=== PATIENT | male | born 1960 | race Two or more races ===

== ENCOUNTER 2018-09-10 16:01 | Emergency (ER) | payer BC, OTHER ==
[~2018-09-10] VITALS: Ht 172.7 cm; Wt 93.0 kg
[2018-09-10 16:25] VITALS: BP 132/81
[2018-09-10] MEDS ORDERED: LORazepam 0.5 MG TAB PO ONE (16:30)
[2018-09-10] MEDS ORDERED: KETOROLAC TROMETH 60MG/2ML VIAL IM ONE (17:30)
== END 2018-09-10 17:46 | disposition home or self-care (01) ==
LOC: ER 16:01
DX: S16.1XXA Strain of muscle, fascia and tendon at neck level, initial encounter (principal); S39.012A Strain of muscle, fascia and tendon of lower back, initial encounter; M25.511 Pain in right shoulder; V42.5XXA Car driver injured in collision with two- or three-wheeled motor vehicle in traffic accident, initial encounter; Y93.89 Activity, other specified; Y92.488 Other paved roadways as the place of occurrence of the external cause; Y99.8 Other external cause status
CPT/HCPCS: 72040; 72100; 73030; 96372; 99283; J1885

== ENCOUNTER 2022-02-20 10:08 | Emergency (ER) | payer BC, MEDICAID ==
[~2022-02-20] VITALS: Ht 167.6 cm; Wt 80.0 kg
[2022-02-20 10:16] VITALS: BP 143/88
== END 2022-02-20 11:13 | disposition home or self-care (01) ==
LOC: ER 10:08
DX: S31.105D Unspecified open wound of abdominal wall, periumbilic region without penetration into peritoneal cavity, subsequent encounter (principal); X58.XXXD Exposure to other specified factors, subsequent encounter